=== PATIENT | female | born 1940 | race Caucasian/White ===

== ENCOUNTER → 2016-12-16 | Outpatient (CLI) | payer MEDICARE, BC ==
[~2016-12-16] MED LIST: ASPIRIN 81M81 MG/TA2 PO; ATENOLOL100 MG PO; BACTRIM DS 8001 TAB PO; BUSPAR10 MG PO; CALCIUM 600600 M2 PO; CALCIUM600 MG PO; CELLCEPT 250MG250 MG PO; CELLCEPT 5500 MG/TAB PO; COUMADIN 1MG1 MG/TAB PO; COUMADIN 2MG2 MG/TAB PO; COZAAR100 MG PO; FERROUS SULFAT325 M2 PO; FISH OIL1000 MG PO; HUMALOG100 U/ML SC; KLOR-CON 1010 MEQ PO; LANTUS SOLOS100 U/ML SC; LANTUS100 U/ML SC; LASIX 20MG TABL20 MG PO; LIQUID MAGNESI400 MG PO; LISINOPRIL20 MG PO; MULTIPLE VITAMI1 CAP PO; NORVASC 5MG5 MG/TAB PO; NOVOLOG 100U100 U/ML SQ; PREDNISONE 5MG5 MG PO; PREDNISONE20 MG PO; PRILOSEC 20MG20 MG PO; PROGRAF 0.5MG0.5 MG PO; PROGRAF 1MG1 MG PO; PROGRAF1 MG PO; SPORANOX 1100 MG/CAP PO; VITAMIN D2000 I1 PO; ZITHROMAX500 M2 PO; ZOCOR 40MG40 MG PO; ZOVIRAX 200MG200 MG PO
== END ==
LOC: COL.PUL 11:00
DX: Z94.2 Lung transplant status (principal); T86.19 Other complication of kidney transplant; D89.9 Disorder involving the immune mechanism, unspecified

== ENCOUNTER → 2017-09-29 | Outpatient (CLI) | payer MEDICARE, BC | LOC: COL.PUL 09-22 11:20 | DX: T86.819 Unspecified complication of lung transplant (principal); Z94.2 Lung transplant status ==

== ENCOUNTER → 2022-03-29 | Outpatient (CLI) | payer MEDICARE, BC | LOC: COL.CARD 09:15 | DX: R55 Syncope and collapse (principal) ==